=== PATIENT | male | born 1980 | race Caucasian/White ===

== ENCOUNTER 2016-11-06 13:57 | Emergency (ER) | payer SELFPAY ==
[~2016-11-06] VITALS: Ht 152.4 cm; Wt 77.0 kg
[2016-11-06] MEDS ORDERED: SODIUM CHLORIDE 0.9% 1,000 ML IV ONE (18:38)
[2016-11-06] MEDS ORDERED: ONDANSETRON HCL 4MG/2ML VIAL IV STA (18:38)
[2016-11-06] MEDS ORDERED: METOCLOPRAMIDE HCL 10MG/2ML VIAL IV STA (18:38)
[2016-11-06] MEDS ORDERED: KETOROLAC 30MG/ML VIAL IV ONE (18:45)
[2016-11-06 21:50] LABS: *AMPHETAMINES SCREEN URINE NEGATIVE (NEGATIVE); *BARBITURATES SCREEN URINE NEGATIVE (NEGATIVE); *BENZODIAZEPINES SCREEN URINE NEGATIVE (NEGATIVE); *COCAINE SCREEN URINE NEGATIVE (NEGATIVE); CANNABINOID URINE SCREEN NEGATIVE (NEGATIVE); METHADONE URINE SCREEN NEGATIVE (NEGATIVE); OPIATES URINE SCREEN NEGATIVE (NEGATIVE); PHENCYCLIDINE URINE SCREEN NEGATIVE (NEGATIVE)
[2016-11-07] VITALS: BP 138/80
== END 2016-11-07 00:05 | disposition home or self-care (01) ==
LOC: ER 13:57
DX: R51 Headache (principal); Z53.21 Procedure and treatment not carried out due to patient leaving prior to being seen by health care provider
CPT/HCPCS: 80305; 96374; 96375; 99284; J1885; J2405; J2765; J7030; Z7610

== ENCOUNTER 2024-11-14 13:39 | Inpatient (IN) | payer MEDICAID ==
[~2024-11-14] VITALS: Ht 172.7 cm; Wt 91.6 kg
[2024-11-14 09:40] VITALS: BP 101/68; PULSE 72; RESP 20; TEMP 36.6; O2SAT 96
[2024-11-14 13:42] VITALS: O2SAT 100
[2024-11-14 14:52] LABS: BASOPHILS % 0.5 % (0.0-2.0); EOSINOPHILS % 1.1 % (0.0-5.0); HEMATOCRIT. 42.8 % (42.0-52.0); HEMOGLOBIN. 14.1 g/dL (14.0-18.0); LYMPHOCYTES % 22.6 % (20.0-50.0); MEAN PLATELET VOLUME 10.9 fl (7.4-10.4); MONOCYTES % 5.9 % (2.0-8.0); NEUTROPHILS % 69.9 % (40.0-76.0); PLATELET 175 x1000/uL (130-400); RED BLOOD CELL COUNT 4.95 mill/uL (4.7-6.1); RED CELL DISTRIBUTION WIDTH 13.7 % (11.6-14.6)
[2024-11-14 15:23] LABS: TROPONIN I HIGH SENSITIVITY 5 ng/L (3.0-53)
[2024-11-14 15:24] LABS: CREATININE 1.3 mg/dL (0.6-1.3); UREA NITROGEN BLOOD 10 mg/dL (9-23)
[2024-11-14] MEDS: FAMOTIDINE 20MG TABLET PO SCH (15:24)
[2024-11-14] MEDS: MAGNESIUM/ALUMINUM HYDROXIDE/SIMETHICONE 30ML UDC PO SCH (15:25)
[2024-11-14] MEDS: SODIUM CHLORIDE 0.9% 1,000 ML IV ONE ×2 (16:12)
[2024-11-14 17:43] LABS: BG BASE EXCESS -0.1 mmol/L (-2.0-3.0); BG CARBOXYHEMOGLOBIN 0.8 % (0.5-1.5); BG DEOXYHEMOGLOBIN 1.1 % (0.0-5.0); BG FRACTION INSPIRED OXYGEN 21; BG HCO3 ACT 24.6 mmol/L (21.0-28.0); BG METHEMOGLOBIN 0.3 % (0.5-1.5); BG OXYGEN SATURATION 98.9 % (94.0-98.0); BG OXYHEMOGLOBIN 97.8 % (94.0-98.0); BG PCO2 40.5 mmHg (35.0-48.0); BG PH 7.402 (7.350-7.450); BG PO2 128.4 mmHg (83.0-108.0); BG SAMPLE SITE RIGHT BRACHIAL; BG TOTAL HEMOGLOBIN 14.2 g/dL (13.5-17.5); BG VENT MODE ROOM AIR
[2024-11-14] MEDS: INSULIN REGULAR (HUMULIN R) 1000UNITS/10ML VIAL SUBCUT ONE (17:56)
[2024-11-14] MEDS ORDERED: PNEUMOCOCCAL 20-VAL CONJ-DIP CRM 0.5ML IM ONE (21:15)
[2024-11-14] MEDS ORDERED: IPRATROPIUM/ALBUTEROL 0.5-3(2.5)MG/3ML NEB HHN PRN (21:45)
[2024-11-14] MEDS ORDERED: ONDANSETRON HCL 4MG/2ML INJ IV PRN (21:45)
[2024-11-14] MEDS ORDERED: MAGNESIUM/ALUMINUM HYDROXIDE/SIMETHICONE 30ML UDC PO PRN (21:45)
[2024-11-14] MEDS ORDERED: GUAIFENESIN 200MG/10ML SUGAR FREE UDC PO PRN (21:45)
[2024-11-14] MEDS ORDERED: DEXTROSE 50% WATER 50ML SYRINGE IV PRN (21:45)
[2024-11-14] MEDS ORDERED: CLONIDINE 0.1MG TABLET PO PRN (21:45)
[2024-11-14] MEDS ORDERED: ACETAMINOPHEN 325MG TABLET PO PRN (21:45)
[2024-11-14] MEDS ORDERED: DOCUSATE SODIUM 100MG CAPSULE PO PRN (21:45)
[2024-11-14 22:00] VITALS: BP 101/68; PULSE 72; RESP 20; TEMP 36.5848
[2024-11-14] MEDS: SODIUM CHLORIDE 0.9% 1,000 ML IV SCH (23:25)
[2024-11-14] MEDS: INSULIN LISPRO 100 UNITS/ML SUBCUT SCH (23:32)
[2024-11-14] MEDS: INSULIN GLARGINE 100 UNITS/ML SUBCUT SCH (23:36)
[2024-11-14] MEDS: ENOXAPARIN 40MG/0.4ML SYR SUBCUT SCH (23:38)
[2024-11-15] VITALS: BP 104/69; PULSE 67; RESP 16; TEMP 36.3; O2SAT 100
[2024-11-15] MEDS: INSULIN REGULAR (HUMULIN R) 1000UNITS/10ML VIAL IV NR (00:37)
[2024-11-15 04:00] VITALS: BP 100/59; PULSE 61; RESP 16; TEMP 36.6; O2SAT 97
[2024-11-15] MEDS: BLOOD SUGAR DIAGNOSTIC STRIP TEST SCH (06:28)
[2024-11-15] MEDS ORDERED: DEXTROSE 50% WATER 50ML SYRINGE IV PRN (06:30)
[2024-11-15] MEDS ORDERED: INSULIN LISPRO 100 UNITS/ML SUBCUT SCH (07:30)
[2024-11-15 07:38] LABS: CREATININE 0.8 mg/dL (0.6-1.3)
[2024-11-15 07:39] LABS: ETHANOL BLOOD < 10 mg/dL (<10); TRIGLYCERIDE 190 mg/dL (0-150); UREA NITROGEN BLOOD 9 mg/dL (9-23)
[2024-11-15 07:40] LABS: ASPARTATE AMINOTRANSFERASE 32 IU/L (<34); LDL CHOLESTEROL 94 mg/dL (5-100); PROTEIN TOTAL 5.5 g/dL (6.0-8.3)
[2024-11-15 07:41] LABS: BILIRUBIN DIRECT 0.1 mg/dL (<=3.0); BILIRUBIN TOTAL 0.5 mg/dL (0.1-1.0)
[2024-11-15 08:00] VITALS: BP 109/73; PULSE 64; RESP 20; TEMP 36.4; O2SAT 95
[2024-11-15 08:14] LABS: HEPATITIS C AB NON REACTIVE (Neg) (Negative)
[2024-11-15] MEDS: PANTOPRAZOLE SODIUM 40 MG/VIAL IV SCH (08:40)
[2024-11-15] MEDS: INSULIN LISPRO 100 UNITS/ML SUBCUT SCH ×2 (09:05→12:00)
[2024-11-15 12:00] VITALS: BP 107/70; PULSE 64; RESP 19; TEMP 36.2; O2SAT 99
[2024-11-15 16:00] VITALS: BP 98/63; PULSE 74; RESP 18; TEMP 36.3; O2SAT 100
[2024-11-15 20:00] VITALS: BP 103/58; PULSE 66; RESP 19; TEMP 36.2; O2SAT 98
[2024-11-16] VITALS: BP 118/64; PULSE 59; RESP 19; TEMP 36.2; O2SAT 100
[2024-11-16 04:00] VITALS: BP 107/62; PULSE 58; RESP 19; TEMP 36.3; O2SAT 97
[2024-11-16 07:19] LABS: BASOPHILS % 0.5 % (0.0-2.0); EOSINOPHILS % 3.0 % (0.0-5.0); HEMATOCRIT. 39.8 % (42.0-52.0); HEMOGLOBIN. 13.3 g/dL (14.0-18.0); LYMPHOCYTES % 37.0 % (20.0-50.0); MEAN PLATELET VOLUME 10.5 fl (7.4-10.4); MONOCYTES % 3.6 % (2.0-8.0); NEUTROPHILS % 55.9 % (40.0-76.0); PLATELET 155 x1000/uL (130-400); RED BLOOD CELL COUNT 4.65 mill/uL (4.7-6.1); RED CELL DISTRIBUTION WIDTH 13.8 % (11.6-14.6)
[2024-11-16 07:34] LABS: CREATININE 0.7 mg/dL (0.6-1.3)
[2024-11-16 07:35] LABS: UREA NITROGEN BLOOD < 5 mg/dL (9-23)
[2024-11-16 07:37] LABS: PHOSPHORUS 3.0 mg/dL (2.5-4.9)
[2024-11-16 08:00] VITALS: BP 114/62; PULSE 61; RESP 16; TEMP 36.3; O2SAT 99
[2024-11-16] MEDS: POTASSIUM CHLORIDE 20MEQ TABLET SR PO SCH (08:04)
[2024-11-16 12:00] VITALS: BP 108/68; PULSE 58; RESP 16; TEMP 36.3; O2SAT 99
[2024-11-16] MEDS: INSULIN LISPRO 100 UNITS/ML SUBCUT SCH (12:39)
[2024-11-16 16:00] VITALS: BP 109/68; PULSE 62; RESP 16; TEMP 36.3; O2SAT 100
[2024-11-16] MEDS ORDERED: LANTUSUD SUBCUT (17:12)
[2024-11-16 20:00] VITALS: BP 104/61; PULSE 63; RESP 16; TEMP 36.3; O2SAT 98
[2024-11-16] MEDS: INSULIN GLARGINE 100 UNITS/ML SUBCUT SCH (22:16)
[2024-11-17 04:00] VITALS: BP 101/59; PULSE 64; RESP 17; TEMP 36.4; O2SAT 98
[2024-11-17 08:00] VITALS: BP 127/83; PULSE 67; RESP 18; TEMP 37.4; O2SAT 94
[2024-11-17 10:16] LABS: GLUCOSE FASTING 305 mg/dL (70-105)
[2024-11-17 12:00] VITALS: BP 114/74; PULSE 63; RESP 18; TEMP 36.7; O2SAT 100
[2024-11-17 12:18] VITALS: BP 114/74; PULSE 63; RESP 18; TEMP 98
[2024-11-17] MEDS ORDERED: INSLIS SUBCUT (13:26)
== END 2024-11-17 14:47 | disposition home or self-care (01) | DRG 420 ==
LOC: ER 13:39 → 8EST 17:11 → EDBEDREQSVC 17:18 → EDBEDREQ 17:18 → ENRESERV 20:13
PROVIDERS: ADMIT Hospitalist; ATTEND Hospitalist
DX: E11.00 Type 2 diabetes mellitus with hyperosmolarity without nonketotic hyperglycemic-hyperosmolar coma (NKHHC) (principal); E88.89 Other specified metabolic disorders; N17.9 Acute kidney failure, unspecified; E87.1 Hypo-osmolality and hyponatremia; F15.90 Other stimulant use, unspecified, uncomplicated; E11.65 Type 2 diabetes mellitus with hyperglycemia; F17.200 Nicotine dependence, unspecified, uncomplicated; Z59.02 Unsheltered homelessness; Z55.6 Problems related to health literacy; Z79.4 Long term (current) use of insulin; Z79.899 Other long term (current) drug therapy; Z88.0 Allergy status to penicillin
CPT/HCPCS: 36415; 36600; 71045; 80048; 80061; 80076; 80320; 82010; 82375; 82805; 82947; 82962; 83036; 83735; 83930; 84100; 84443; 84484; 85025; 85379; 86705; 87340; 93005; 99291; J1650; J1815; J2470; J7030; G0480